=== PATIENT | male | born 1995 | race African-American/Black ===

== ENCOUNTER 2022-09-17 13:03 | Outpatient (REF) | payer OTHER, SELFPAY ==
[2022-09-17 14:11] LABS: Hematocrit 44.2 % (42.0-52.0); Hemoglobin 14.3 g/dl (14.0-18.0); Mean Corpuscular HGB Conc 32.4 g/dl (31.0-36.0); Mean Corpuscular Hemoglobin 27.8 pg (27.0-33.0); Mean Platelet Volume 10.5 fL (9.4-12.4); Platelet Count 258 X10*3/uL (160-400); Red Blood Count 5.14 X10*6/uL (4.60-5.80); Red Cell Distribution Width 12.3 % (11.0-16.0); White Blood Count 5.7 X10*3/uL (4.8-10.8)
[2022-09-17 16:00] LABS: Ferritin 128 ng/mL (20-250)
[2022-09-19 08:02] LABS: HBS Num1 5.82 mIU/mL (0-7.99); HBc Num1 0.07 S/CO (0.00-0.79); HBsAGNum1 0.28 S/CO (0.00-0.99); HIV AB/AG Nonreactive (Nonreactive); HIV Num 1 0.06 S/CO (0.00-0.99); Hepatitis B Core Antibody Nonreactive (Nonreactive); Hepatitis B Surface Antigen Negative (Negative); ~Hepatitis B Surface Antibody NONREACTIVE (Nonreactive)
== END 2022-09-17 13:04 | disposition home or self-care (01) ==
LOC: HO.LAB 13:03
PROVIDERS: PCP Pediatrics; Visit Provider Internal Medicine
DX: Z11.4 Encounter for screening for human immunodeficiency virus [HIV] (principal); K62.5 Hemorrhage of anus and rectum; K62.89 Other specified diseases of anus and rectum
CPT/HCPCS: 36415; 82728; 85027; 86704; 86706; 87340; 87389

== ENCOUNTER 2022-11-13 09:38 | Day surgery (SDC) | payer OTHER, SELFPAY ==
[2022-11-11 11:31] VITALS: BMI 27.4
[2022-11-13 10:00] VITALS: BP 155/83; PULSE 80; RESP 16; TEMP 36.5; O2SAT 100; BMI 26.6
--- NOTE | 2022-11-13 10:18 | P.CONAN_ITS ---
HPI - Anesthesia Eval Consult details Narrative: 27 yo male patient for Flexible Sigmoidoscopy PMFSH Active Problems Active Problems: All Active Problems (Updated 09/17/22 @ 13:58 by Snow Hatch MD) Rectal pain (Acute) Bright red rectal bleeding (Acute) Anxiety/Depression Family History Family history of problems with anesthesia: No Surgical History History of Problems with Anesthesia: No (No previous surgeries) Social History Social History (Updated 11/13/22 @ 10:47 by Cynthia Child MD) Household Members: None Alcohol intake: current Alcohol intake frequency: a few times a week Patient Tobacco Use Status: Never used Tobacco Substance Use Type: Marijuana Meds Allergies Allergy/AdvReac Type Severity Reaction Status Date / Time No Known Allergies Allergy Verified 09/17/22 13:08 Active Medications: Current Medications Sodium Biphosphate/Sodium Phosphate (Sodium Phosphate,[place]-Dibasic 133 Ml Enema) 266 ml OR ONCE JEROME Home Medications Medication Instructions Recorded Confirmed Last Taken Type bupropion HCl 300 mg 24 hr tablet, 300 mg PO DAILY 09/17/22 Unknown History extended release Exam Exam Date and Time: November 13, 2022 1018 Height,Weight and Vital Signs: Height 5 ft 8 in Weight 81.647 kg Vital Signs Temp Pulse Resp BP Pulse Ox O2 Del Method 11/13/22 10:00 97.7 F 80 16 155/83 H 100 Room Air Airway Mallampati Class: I TM Dist: >3cm Neck ROM: Full Loose/Missing/Broken Teeth: No Heart: RRR Lungs: CTAB Assessment and Plan Assessment Anesthesia Assessment: Anesthesia Plan Discussed and Chart Reviewed Final Anesthetic Review Family History of Problems with Anesthesia: No History of Problems with Anesthesia: No (No previous surgeries) NPO: Yes ASA Class: II Final Preanesthetic Review: No Changes in Pt Med Stat, Meds/Allgs Chart Reviewed, Consent Obtained/Reviewed and Anes Risks/Benef Reviewed Patient Risk: Low Procedure Risk: Low Assessment/Block/Sedation in SS: Assess/Block/Sedation-SS Anesthetic Plan Anesthetic Plan: MAC: Disposition: Standard PACU
[2022-11-13] MEDS: Sodium Phosphate,Mono-Dibasic 133 ML ENEMA 266 ML PR (10:24)
--- NOTE | 2022-11-13 10:34 | MHC.SHP ---
Pre-Procedural Eval Section A Date of Service: 11/13/22 Section B Chief Complaint: Rectal bleeding Relevant Family History (Specify if Yes): No Relevant Social History: Other (specify) (anal receptive intercourse ) Medical History: No relevant PMH Allergies: Allergies Allergy/AdvReac Type Severity Reaction Status Date / Time No Known Allergies Allergy Verified 09/17/22 13:08 Review of Systems Review of Systems Comment: 10 point ROS negative except as above Exam Exam Comment: Gen appear: No acute distress HEENT: no icterus Chest: No overt resp distress Abd: soft, nontender, nondistended Psych: Stable affect, answering questions appropriately Neuro: A/Ox3 noted to move all extremities spontaneously Ext: no peripheral edema Plan Diagnosis/Plan: Unchanged I have reviewed the history and physical and performed a pertinent physical examination on my patient. No changes have occurred unless specified. Time Spent With Patient Time: Total time managing care of this patient today ____ minutes.
--- NOTE | 2022-11-13 10:35 | P.OP_ITS ---
Operative Note Operative Note Date of Service: 11/13/22 Narrative: Procedure: Flexible sigmoidoscopy Indication: Rectal bleeding Endoscopist: Snow Hatch MD Anesthesia Provider: Sweta Garza CRNA Anesthesia type: MAC Instrument: Olympus [id number]-[id number] Consent: Indication, risks vs benefits, and alternatives were discussed with the patient who gave written informed consent to proceed. EKG, pulse, pulse oximetry and blood pressure were monitored throughout the procedure. Please see anesthesia flowsheet. Procedure: The patient was brought to the procedure room and placed in the left lateral decubitus position. IV medications were administered by the anesthesia provider in attendance. A digital rectal exam was performed which was normal. A distal attachment cap was affixed to the tip of the scope and the gastroscope was then inserted through the anus and advanced through the colon to the transverse colon. Mucosa was carefully examined under high definition white light as the instrument was slowly withdrawn in a retrograde panoramic fashion. Retroflexion was performed in rectum. The procedure was not difficult. There were no immediate obvious complications. Limitations: No limitations. Findings: Mucosa: Normal to transverse colon. A small anal fissure was noted on retroflexion in anorectum. Protruding lesions: * Small internal hemorrhoids without stigmata of recent bleeding. Impression: 1. Normal colon mucosa to transverse colon 2. Anal fissure 3. Internal hemorrhoids Recommendations: - Anal fissure likely secondary to local trauma - Topical lidocaine and nitroglycerin Rxed x 4 weeks - Cont fiber supplements and sitz baths - Avoid anal intercourse until fissure has healed - Pt to call us if symptoms do not improve despite 4 weeks of therapy
== END 2022-11-13 11:41 | disposition home or self-care (01) ==
PROVIDERS: PCP Pediatrics; Visit Provider Internal Medicine
PROC: 0DJD8ZZ Inspection of Lower Intestinal Tract, Via Natural or Artificial Opening Endoscopic (ICD-10-PCS; CPT 45330; principal; 2022-11-13 11:10)
DX: K62.5 Hemorrhage of anus and rectum (principal); K60.2 Anal fissure, unspecified; K62.89 Other specified diseases of anus and rectum; K64.8 Other hemorrhoids; F12.90 Cannabis use, unspecified, uncomplicated
CPT/HCPCS: 45330

== ENCOUNTER → 2022-11-13 09:38 | Outpatient (BNV) | payer OTHER, SELFPAY | PROVIDERS: PCP Pediatrics; Visit Provider Internal Medicine | DX: K60.2 Anal fissure, unspecified (principal); K64.8 Other hemorrhoids; K62.5 Hemorrhage of anus and rectum | CPT/HCPCS: 45330 ==

== ENCOUNTER 2022-12-16 11:06 | Outpatient (AMB) | payer OTHER, SELFPAY ==
[2022-12-16 11:13] VITALS: BP 135/88; PULSE 58; BMI 27.4
--- NOTE | 2022-12-16 11:13 | MHC.OFFVIS ---
Intake Vital Signs 12/16/22 11:13 Height 5 ft 8 in Weight 179 lb 14.355 oz BMI 27.4 BP 135/88 Blood Pressure Location Rt brachial Position Sitting Pulse 58 Intake Visit Reasons: s/p flexsig Intake Note: Austin presents in the office today in follow up of Flexible sigmoidoscopy. 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 09/17/22: Pt reports intermittent sensation of rectal heaviness associated with hard stools and difficulty evacuating. This is also associated with scant amount of bleeding and sometimes burning after he has evacuated. No abdominal pain, N,V. No unintentional weight loss. Receptive anal intercourse + but reports using barrier protection consistently. Has never had anal pap. 11/13/22: Flex si. Normal colon mucosa to transverse colon 2. Anal fissure 3. Internal hemorrhoids Recommendations: - Anal fissure likely secondary to local trauma - Topical lidocaine and nitroglycerin Rxed x 4 weeks - Cont fiber supplements and sitz baths - Avoid anal intercourse until fissure has healed - Pt to call us if symptoms do not improve despite 4 weeks of therapy 12/16/22: Reports using Rectiv with lidocaine x 3 weeks with resolution of rectal bleeding. Rectal pain and discomfort however is only 50% improved. Continues to note discomfort on defecation nik on the R side of anal opening. [facility] Medical History (Updated 12/16/22 @ 11:28 by Snow Hatch MD) History of flexible sigmoidoscopy Social History Household Members: None Alcohol intake: current Alcohol intake frequency: a few times a week Patient Tobacco Use Status: Never used Tobacco Substance Use Type: Marijuana Review of Systems Const All systems reviewed & are unremarkable except as noted in HPI and below Physical Exam Vital Signs: Last Vital Signs Pulse 58 12/16/22 11:13 BP 135/88 12/16/22 11:13 BMI result Body Mass Index 27.4 Gen appear: NAD HEENT: nonicteric Chest: CTA Abd: soft, nondistended Ext: no peripheral edema Neuro: A/Ox3, noted to move all extremities spontaneously Psych: interacting appropriately Assessment & Plan Assessment & Plan (1) Anal fissure: Code(s): K60.2 - Anal fissure, unspecified (2) Rectal pain: Code(s): K62.89 - Other specified diseases of anus and rectum Plan Given only partial improvement with topical therapy, will refer to gen surg (Dr Reyes) for further evaluation and management. He is to cont Rectiv until seen by surgery. Advised to abstain from anal receptive intercourse until fissure heals completely. Follow up with GI office as needed. Orders: Referrals General Surgery Referral K60.2 - Anal fissure, unspecified Coding Level of Care Code Est Pt Level 3 (87545) Diagnoses Anal fissure K60.2 Rectal pain K62.89
== END 2022-12-16 13:12 | disposition home or self-care (01) ==
PROVIDERS: PCP Pediatrics; Visit Provider Internal Medicine
DX: K60.2 Anal fissure, unspecified (principal); K62.89 Other specified diseases of anus and rectum
CPT/HCPCS: 99213

== ENCOUNTER → 2022-12-16 11:06 | Outpatient (BNVA) | payer OTHER, SELFPAY | PROVIDERS: PCP Pediatrics; Visit Provider Internal Medicine ==

== ENCOUNTER 2023-03-27 10:23 | Outpatient (REF) | payer OTHER, SELFPAY | END 2023-03-27 10:24 | disposition home or self-care (01) | LOC: HO.SH 10:23 | PROVIDERS: Visit Provider Pediatrics | DX: Z01.118 Encounter for examination of ears and hearing with other abnormal findings (principal); H93.13 Tinnitus, bilateral | CPT/HCPCS: 92557; 92567 ==

== ENCOUNTER 2023-05-06 15:38 | Outpatient (AMB) | payer OTHER, SELFPAY ==
--- NOTE | 2023-05-06 15:39 | MHC.OFFVIS ---
Intake Vital Signs 05/06/23 15:46 Height 5 ft 8 in Weight 184 lb BMI 28.0 BP 140/82 H Blood Pressure Location Rt brachial Position Sitting Pulse 77 Intake Visit Reasons: Anal fissure Intake Note: This patient was referred by for anal fissure assessment. Patient c/o; reports notices occasional bleeding when straining with bowel movements, reports no constipation. 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 He actually describes more of itching around his anus on and off. He said that he has had this issue for about 10 years now. He does state that he sees small amounts of blood once in a while on wiping although this is not frequent He denies being constipated. He denies significant pain with his anus. [facility] Medical History History of flexible sigmoidoscopy Social History Household Members: None Alcohol intake: current Alcohol intake frequency: a few times a week Patient Tobacco Use Status: Never used Tobacco Substance Use Type: Marijuana Review of Systems Const Denies chills and Denies fever(s) Card Denies chest pain, Denies dyspnea and Denies dyspnea on exertion Resp Denies cough, Denies dyspnea and Denies dyspnea on exertion GI Reports hematochezia (Very occasional) and Denies change in bowel habits Denies hematuria and Denies difficulty urinating Musc Denies back pain and Denies limited range of motion Neuro Denies focal weakness and Denies convulsions Psych Denies depression and Denies mood swings Physical Exam Const General: comfortable and no acute distress Orientation/consciousness: patient oriented x3 Neck Neck: Yes no lymphadenopathy Resp Auscultation: clear to auscultation bilaterally Cardio Rhythm: regular rhythm GI Other: Rectal exam shows external hemorrhoids on both the left and right side. Palpation (GI): Soft to palpation, nontender and no guarding Neuro General: patient oriented x3 Office Procedures Anoscopy He was in haley-knife position. The anoscope was gently inserted. He did not have hypertonicity. He tolerated insertion of the anoscope well. He did not have any fissure seen. Anal mucosa examined carefully. There he was note of some internal external hemorrhoids. These were not bulky There was no fissure or any ulcer or lesion. There was no hypertonicity on digital exam. There was no bleeding. [id number] Assessment & Plan Assessment & Plan (1) Bright red rectal bleeding: Code(s): K62.5 - Hemorrhage of anus and rectum Plan: This is likely secondary to his hemorrhoids which are internal external. I did not see any fissure. He did not have any hypertonicity of his sphincters. He does state that his bleeding and itching are not severe. He does not want to proceed with hemorrhoidectomy. I advised him on avoiding straining and constipation. He states that he does not need any stool softeners. He is welcome to come to me follow-up with anal complaints down the line . Coding Level of Care Code New Pt Level 3 (27546) Diagnoses Bright red rectal bleeding K62.5 CPT Codes Details - CPT: 42781-[id number] ([id number])
[2023-05-06 15:46] VITALS: BP 140/82; PULSE 77; BMI 28.0
== END 2023-05-06 15:56 | disposition home or self-care (01) ==
PROVIDERS: PCP Pediatrics; Visit Provider Surgery
DX: K62.5 Hemorrhage of anus and rectum (principal); K64.8 Other hemorrhoids
CPT/HCPCS: 46600; 99203

== ENCOUNTER → 2023-05-06 15:38 | Outpatient (BNVA) | payer OTHER, SELFPAY | PROVIDERS: PCP Pediatrics; Visit Provider Surgery | DX: K62.5 Hemorrhage of anus and rectum (principal); K64.4 Residual hemorrhoidal skin tags; K64.8 Other hemorrhoids | CPT/HCPCS: 46600 ==